=== PATIENT | male | born 1990 | race African-American/Black ===

== ENCOUNTER 2022-12-09 13:35 | Emergency (ER) | payer OTHER, SELFPAY ==
[2022-12-09 13:59] VITALS: BP 139/81; PULSE 103; RESP 20; TEMP 36.7; O2SAT 98; BMI 23.0
--- NOTE | 2022-12-09 14:50 | ED.URI1 ---
Documented by User: MALCOM Armendariz 12/09/22 14:54 HPI - URI/Sore Throat General Chief Complaint: Upper Respiratory Infection Stated Complaint: EXPOSED TO [place] VIRUS Time Seen by Provider: 12/09/22 13:44 Source: patient Limitations: no limitations History of Present Illness HPI Narrative: patient is a 32-year-old male who presents the emergency department for the evaluation of flulike illness. Patient states for the last day he has had scratchy throat, nasal congestion. No significant coughing. He has had no fevers or vomiting. He has had diarrhea. He states he was exposed to Covid at work. His girlfriend is also being evaluated for the same symptoms. No medications taken prior to arrival. Related Data Home Medications Medication Instructions Recorded Confirmed buspirone 7.5 mg tablet 7.5 mg PO TID 12/09/22 12/09/22 risperidone 2 mg tablet 2 mg PO BEDTIME 12/09/22 12/09/22 Previous Rx's Medication Instructions Recorded djwuiqvjtithdoa-uffwhrvznrhgluj-NQ 10 ml PO Q6H PRN cold symptoms 12/09/22 2 mg-30 mg-10 mg/5 mL oral syrup #200 mL (Bromfed DM) ondansetron 4 mg disintegrating 4 mg PO Q6H PRN nausea and 12/09/22 tablet vomiting #12 tabs Allergies Allergy/AdvReac Type Severity Reaction Status Date / Time erythromycin base Allergy Severe Rash Verified 12/09/22 13:58 Review of Systems ROS Constitutional Denies: fever or chills Ears, nose, mouth, and throat Reports: throat pain and nasal congestion Cardiovascular Denies: chest pain Respiratory Denies: shortness of breath or cough Gastrointestinal Reports: diarrhea Musculoskeletal Denies: back pain Integumentary/Breast Denies: rash Neurological Denies: headache Allergic/Immunologic Denies: hives PFSH PFSH Social History Smoking status: Heavy tobacco smoker Exam Narrative Exam Narrative: Gen.: Awake, alert, in no distress Head: Normocephalic, atraumatic ENT: Moist mucous membranes, bilateral tympanic membranes clear, no pharyngeal erythema with clear speech, no trismus or drooling, uvula midline Respiratory: No respiratory distress, lungs clear bilaterally Cardio: Regular rate and rhythm Extremities: Moves extremities equally Psych: Normal mood and affect Neuro: No focal neuro deficit Skin: Warm, dry, intact Constitutional Vital Signs, click to edit/add: Last Vital Signs Temp 98.1 F 12/09/22 13:59 Pulse 103 H 12/09/22 13:59 Resp 20 12/09/22 13:59 BP 139/81 12/09/22 13:59 Pulse Ox 98 12/09/22 13:59 O2 Del Method Room Air 12/09/22 13:59 Course Vital Signs Vital signs: Vital Signs Temperature 98.1 F 12/09/22 13:59 Pulse Rate 103 H 12/09/22 13:59 Respiratory Rate 20 12/09/22 13:59 Blood Pressure 139/81 12/09/22 13:59 Pulse Oximetry 98 12/09/22 13:59 Oxygen Delivery Method Room Air 12/09/22 13:59 Temperature 98.1 F 12/09/22 13:59 Pulse Rate 103 H 12/09/22 13:59 Respiratory Rate 20 12/09/22 13:59 Blood Pressure 139/81 12/09/22 13:59 Pulse Oximetry 98 12/09/22 13:59 Oxygen Delivery Method Room Air 12/09/22 13:59 MDM - URI/Sore Throat MDM Narrative Medical decision making narrative: exam is consistent with upper respiratory illness, probable Covid. Covid swab obtained and we will contact with results. Follow-up with PCP, return to the Emergency Room if symptoms change or worsen. Decadron given in the Emergency Room, Bromfed-DM and Zofran given for home as needed with a work no. Discharge Plan Discharge Chief Complaint: Upper Respiratory Infection Clinical Impression: Upper respiratory infection Patient Disposition: Home, Self-Care Time of Disposition Decision: 14:50 Condition: Good Prescriptions / Home Meds: New broblsmcuijdztd-lnylzttfx-GE [Bromfed DM] 2-30-10 mg/5 mL syrup 10 ml PO Q6H PRN (Reason: cold symptoms) Qty: 200 0RF ondansetron 4 mg tablet,disintegrating 4 mg PO Q6H PRN (Reason: nausea and vomiting) Qty: 12 0RF No Action buspirone 7.5 mg tablet 7.5 mg PO TID risperidone 2 mg tablet 2 mg PO BEDTIME Instructions: Upper Respiratory Infection (ED) Stand Alone Forms: Portal Instructions Referrals: Physician,Non-Staff, [Primary Care Provider] - 1 week Discharge Date/Time: 12/09/22 15:03 Documented by User: Jayne Rankin MD 12/09/22 15:27 HPI - URI/Sore Throat General Chief Complaint: Upper Respiratory Infection Stated Complaint: EXPOSED TO [place] VIRUS Time Seen by Provider: 12/09/22 13:44 Related Data Home Medications Medication Instructions Recorded Confirmed buspirone 7.5 mg tablet 7.5 mg PO TID 12/09/22 12/09/22 risperidone 2 mg tablet 2 mg PO BEDTIME 12/09/22 12/09/22 Previous Rx's Medication Instructions Recorded jnvhsdnvvdilfnj-apmjujkxzajvewi-FA 10 ml PO Q6H PRN cold symptoms 12/09/22 2 mg-30 mg-10 mg/5 mL oral syrup #200 mL (Bromfed DM) ondansetron 4 mg disintegrating 4 mg PO Q6H PRN nausea and 12/09/22 tablet vomiting #12 tabs Allergies Allergy/AdvReac Type Severity Reaction Status Date / Time erythromycin base Allergy Severe Rash Verified 12/09/22 13:58 PFSH PFSH Social History Smoking status: Heavy tobacco smoker Exam Constitutional Vital Signs, click to edit/add: Last Vital Signs Temp 98.1 F 12/09/22 13:59 Pulse 103 H 12/09/22 13:59 Resp 20 12/09/22 13:59 BP 139/81 12/09/22 13:59 Pulse Ox 98 12/09/22 13:59 O2 Del Method Room Air 12/09/22 13:59 Course Vital Signs Vital signs: Vital Signs Temperature 98.1 F 12/09/22 13:59 Pulse Rate 103 H 12/09/22 13:59 Respiratory Rate 20 12/09/22 13:59 Blood Pressure 139/81 12/09/22 13:59 Pulse Oximetry 98 12/09/22 13:59 Oxygen Delivery Method Room Air 12/09/22 13:59 Temperature 98.1 F 12/09/22 13:59 Pulse Rate 103 H 12/09/22 13:59 Respiratory Rate 20 12/09/22 13:59 Blood Pressure 139/81 12/09/22 13:59 Pulse Oximetry 98 12/09/22 13:59 Oxygen Delivery Method Room Air 12/09/22 13:59 MDM - URI/Sore Throat MDM Narrative Medical decision making narrative: exam is consistent with upper respiratory illness, probable Covid. Covid swab obtained and we will contact with results. Follow-up with PCP, return to the Emergency Room if symptoms change or worsen. Decadron given in the Emergency Room, Bromfed-DM and Zofran given for home as needed with a work no. Attending physician attestation I have reviewed the mid-level documentation, agree with the documentation, medical decision making and treatment plan as outlined by the mid-level provider. Discharge Plan Discharge Chief Complaint: Upper Respiratory Infection Clinical Impression: Upper respiratory infection Patient Disposition: Home, Self-Care Time of Disposition Decision: 14:50 Condition: Good Prescriptions / Home Meds: New drbuzkejohcacni-firsvuqts-QY [Bromfed DM] 2-30-10 mg/5 mL syrup 10 ml PO Q6H PRN (Reason: cold symptoms) Qty: 200 0RF ondansetron 4 mg tablet,disintegrating 4 mg PO Q6H PRN (Reason: nausea and vomiting) Qty: 12 0RF No Action buspirone 7.5 mg tablet 7.5 mg PO TID risperidone 2 mg tablet 2 mg PO BEDTIME Instructions: Upper Respiratory Infection (ED) Stand Alone Forms: Portal Instructions Referrals: Physician,Non-Staff, MD [Primary Care Provider] - 1 week Discharge Date/Time: 12/09/22 15:03
[2022-12-09] MEDS: DEXAMETHASONE SODIUM PHOSPHATE 10 MG/ML VIAL PO (14:57)
[2022-12-09 15:50] LABS: SARS-CoV-2 Ag NEGATIVE (NEGATIVE)
[2022-12-09 19:04] LABS: SARS-CoV-2 NAA NOT DETECTED (NOT DETECTE)
== END 2022-12-09 15:03 | disposition home or self-care (01) ==
PROVIDERS: Physician Assistant; Emergency Provider Emergency Medicine
DX: J06.9 Acute upper respiratory infection, unspecified (principal); Z79.899 Other long term (current) drug therapy; F17.210 Nicotine dependence, cigarettes, uncomplicated; Z20.822 Contact with and (suspected) exposure to COVID-19
CPT/HCPCS: 87635; 87811; 99283; J1100; U0003